=== PATIENT | male | born 1960 | race Caucasian/White ===

== ENCOUNTER 2021-05-27 10:28 | Emergency (ER) | payer BC ==
[~2021-05-27] VITALS: Ht 167.6 cm; Wt 78.0 kg
[2021-05-27 10:33] VITALS: BP 151/84
[2021-05-27] MEDS ORDERED: MIRABULK PO (12:23)
[2021-05-27] MEDS ORDERED: IBUP-2213 PO (12:23)
[2021-05-27 12:49] VITALS: BP 151/84
== END 2021-05-27 12:48 | disposition home or self-care (01) ==
LOC: MED 10:28
DX: K64.4 Residual hemorrhoidal skin tags (principal); K62.5 Hemorrhage of anus and rectum; Z79.899 Other long term (current) drug therapy
CPT/HCPCS: 99281